=== PATIENT | female | born 2000 | race African-American/Black ===

== ENCOUNTER 2018-04-25 20:45 | Emergency (ER) | payer MEDICAID ==
[~2018-04-25] VITALS: Ht 152.4 cm; Wt 40.5 kg
[2018-04-25 23:54] VITALS: BP 113/67
== END 2018-04-26 02:17 | disposition left against medical advice (07) ==
LOC: ER 20:45
DX: Z53.21 Procedure and treatment not carried out due to patient leaving prior to being seen by health care provider (principal)

== ENCOUNTER 2022-02-13 01:44 | Emergency (ER) | payer MEDICAID ==
[~2022-02-13] VITALS: Ht 152.4 cm; Wt 43.0 kg
[2022-02-13] MEDS ORDERED: DIPHENHYDRAMINE 50MG/ML VIAL IV ONE (02:15)
[2022-02-13] MEDS ORDERED: EPINEPHRINE 1:1000 1 MG/ML AMP SUBCUT ONE (02:15)
[2022-02-13] MEDS ORDERED: DEXAMETHASONE 10 MG/ML VIAL IV ONE (02:15)
[2022-02-13] MEDS ORDERED: FAMOTIDINE 20MG/2ML VIAL IV ONE (02:15)
[2022-02-13 03:00] LABS: BASOPHILS % 0.3 % (0.0-2.0); HEMATOCRIT. 35.8 % (36.0-48.0); LYMPHOCYTES % 25.6 % (20.0-50.0); MEAN CORPUSCULAR HEMOGLOBIN 19.6 pg (28.0-32.0); MEAN CORPUSCULAR VOLUME 63.8 fL (81.0-99.0); MEAN PLATELET VOLUME 8.7 fl (7.4-10.4); MONOCYTES % 11.2 % (2.0-8.0); NEUTROPHILS % 62.9 % (40.0-76.0); PLATELET 208 x1000/uL (130-400); RED BLOOD CELL COUNT 5.61 mill/uL (4.2-5.4); RED CELL DISTRIBUTION WIDTH 18.2 % (11.6-14.6)
[2022-02-13] MEDS ORDERED: EPINEPHRINE 1:1000 1 MG/ML AMP IM ONE (03:00)
[2022-02-13 03:06] LABS: CHLORIDE 110 mEq/L (98-107)
[2022-02-13 04:00] VITALS: BP 113/66
[2022-02-13 04:28] LABS: PLATELET ESTIMATE NORMAL
[2022-02-13] MEDS ORDERED: HYDR453.3 TP (05:30)
[2022-02-13] MEDS ORDERED: P50 PO (05:30)
[2022-02-13] MEDS ORDERED: DIPH25TA62 PO (05:30)
[2022-02-13] MEDS ORDERED: EPIN0.3P3 IM (05:30)
== END 2022-02-13 05:47 | disposition home or self-care (01) ==
LOC: ER 01:44
DX: T78.3XXA Angioneurotic edema, initial encounter (principal)
CPT/HCPCS: 36415; 80053; 85025; 96374; 96375; 99284; J1100; J1200; J3490